=== PATIENT | female | born 1955 | race Caucasian/White ===

== ENCOUNTER → 2019-11-04 15:21 | Outpatient (CLI) | payer BC ==
[2012-02-21 13:04] VITALS: BMI 27.0
[2019-11-04 15:49] LABS: BASOPHILS 0.6 % (0-2); EOSINOPHILS 2.2 % (0-7); HEMATOCRIT 42.2 % (36.0-48.0); HEMOGLOBIN 13.7 g/dL (12-16); IMMATURE GRANULOCYTES 0.1 % (0-5); LYMPHOCYTES 26.6 % (15-50); MCH 30.5 pg (26.0-34.0); MCHC 32.5 g/dL (31.0-37.0); MONOCYTES 7.3 % (2-11); NEUTROPHILS 63.2 % (40-80); PLATELET COUNT 247 10x3/uL (130-400); RBC 4.49 10x6/uL (4.00-5.40); WBC 6.7 10x3/uL (4.8-10.8)
[2019-11-04 16:51] LABS: ERYTHROCYTE SEDIMENTATION RATE 15 mm/hr (0-30)
== END | disposition home or self-care (01) ==
LOC: D.LAB 15:21
PROVIDERS: ATTEND Internal Medicine Gastroenterology
DX: R19.7 Diarrhea, unspecified (principal); K52.9 Noninfective gastroenteritis and colitis, unspecified

== ENCOUNTER → 2020-01-15 10:05 | Outpatient (CLI) | payer BC ==
[2012-02-21 13:04] VITALS: BMI 27.0
== END | disposition home or self-care (01) ==
LOC: D.RAD 10:05
PROVIDERS: ATTEND Internal Medicine Gastroenterology
DX: R19.7 Diarrhea, unspecified (principal); R10.13 Epigastric pain; R10.11 Right upper quadrant pain